=== PATIENT | female | born 1995 | race African-American/Black ===

== ENCOUNTER 2016-04-19 07:37 | Day surgery (SDC) | payer MEDICAID ==
[~2016-04-19 07:37] MED LIST: AVPAK AZITHROM250 MG PO; CLINDAMYCIN300 MG PO; GABAPENTIN100 MG PO; IBUPROFEN 600M600 MG PO; MOTRIN IB200 MG PO; MOTRIN400 MG PO; NOMEDS XX; ORTHO TRI-CYCLE1 TAB PO; TESSALON PERLE100 M1 PO; VITAMIN D50000 I1 PO; ZANTAC150 MG OR; ZITHROMAX Z PA250 MG PO
--- NOTE | 2016-04-19 08:35 | Operative Note ---
Endoscopy Report Date: 04/19/16 Preoperative diagnosis: Iron deficiency anemia Procedure Type of procedure: Esophagogastroduodenoscopy with biopsies Indications: Patient is a 20-year-old female sent from [facility] for upper endoscopy. She has a history of iron deficiency anemia and has previously required iron infusion. She does see Dr. Ulices Waters and also felt that her etiology may be secondary to abnormal uterine bleeding. She was sent by her primary care provider for upper endoscopy. Consent was obtained the patient was taken to same-day surgery endoscopy procedure room. She was positioned in a lateral decubitus position. Adequate intravenous sedation was achieved. However of note, the patient required titration of 11 mg Versed and 300 g fentanyl for the duration of the procedure. Olympus endoscope was inserted via the oropharynx. Esophagus. Normal. Stomach was cannulated and insufflated. Retroflexion revealed no evidence of any hiatal hernia. She had a punctate erosion in the prepyloric location. Gastric antral mucosal biopsy was obtained for CLOtest. Gastric biopsy was obtained at the site of the erosion. Pylorus was traversed. Duodenal bulb and duodenal sweep were unremarkable. Several biopsies were obtained within the distal duodenum. Endoscope was withdrawn. Findings: Punctate erosion in the prepyloric region Otherwise unremarkable Recommendations: Follow-up on histopathology. Treat H. pylori if positive. I will start H2 blockers due to the minimal focal erosion. However, no obvious source for etiology of iron deficiency anemia on EGD. If it is felt that she has a chronic gastrointestinal blood loss colonoscopy may be a consideration. at [id number]
[2016-04-19 12:23] VITALS: BP 145/81
== END 2016-04-19 09:30 | disposition home or self-care (01) ==
LOC: SDC 07:37
PROVIDERS: Surgery
PROC: 0DB68ZX Excision of Stomach, Via Natural or Artificial Opening Endoscopic, Diagnostic (ICD-10-PCS; 2016-04-19)
PROC: 0DB98ZX Excision of Duodenum, Via Natural or Artificial Opening Endoscopic, Diagnostic (ICD-10-PCS; principal; 2016-04-19 08:00)
DX: K25.9 Gastric ulcer, unspecified as acute or chronic, without hemorrhage or perforation (principal); D50.9 Iron deficiency anemia, unspecified

== ENCOUNTER → 2016-06-15 | Outpatient (CLI) | payer MEDICAID | LOC: LAB 18:35 | DX: R07.0 Pain in throat (principal) ==

== ENCOUNTER → 2017-01-25 | Outpatient (CLI) | payer MEDICAID ==
[2017-01-25 16:12] LABS: LYMPH # 1.1 K/mm3 (0.7-4.5); LYMPH % 23.5 % (10-50.0)
[2017-01-25 16:20] LABS: HEMOGLOBIN 10.3 g/dL (12.2-16.2)
[2017-01-25 17:04] LABS: BUN 10 mg/dL (7-18)
[2017-01-25 17:06] LABS: GFR (ESTIMATED) 80 ML/MIN (59-)
[2017-01-27 08:44] LABS: Vitamin D, 25-Hydroxy 11.5 ng/mL (30.0-100.0)
== END ==
LOC: LAB 15:56
PROVIDERS: Physician Assistant
DX: R51 Headache (principal); D50.9 Iron deficiency anemia, unspecified; I10 Essential (primary) hypertension; N92.1 Excessive and frequent menstruation with irregular cycle